=== PATIENT | female | born 1995 | race Asian ===

== ENCOUNTER 2021-01-29 00:27 | Emergency (ER) | payer BC ==
[2021-01-29 01:07] VITALS: TEMP 98.2
[2021-01-29 01:12] VITALS: BMI 19.7
[2021-01-29] MEDS ORDERED: DEXAMETHASONE SOD PHOSPHATE 10 MG/1 ML VIAL IVPUSH ONE (01:34)
[2021-01-29] MEDS ORDERED: diphenhydrAMINE HCL 25 MG CAPSULE (FP) PO ONE ×2 (03:07→03:24)
[2021-01-29] MEDS ORDERED: TRIAMCINOLONE ACET 0.1% 60 ML LOTION TP ONE (03:07)
[2021-01-29] MEDS ORDERED: SODIUM CHLORIDE 0.9% 500 ML INFUS.BAG IV ONE (03:22)
[2021-01-29] MEDS ORDERED: ALBUTEROL SO4 2.5/IPRATROPIUM 0.5 INH SOL 3 ML VIAL.NEB. NEB ONE (04:09)
[2021-01-29 04:34] VITALS: BP 105/54; PULSE 97
== END 2021-01-29 04:03 | disposition home or self-care (01) ==
LOC: JER 00:27
PROC: 3E0F7GC Introduction of Other Therapeutic Substance into Respiratory Tract, Via Natural or Artificial Opening (ICD-10-PCS; principal; 2021-01-29)
PROC: 3E033GC Introduction of Other Therapeutic Substance into Peripheral Vein, Percutaneous Approach (ICD-10-PCS; 2021-01-29)
PROC: 3E033GC Introduction of Other Therapeutic Substance into Peripheral Vein, Percutaneous Approach (ICD-10-PCS; 2021-01-29)
DX: L50.0 Allergic urticaria (principal); T78.40XA Allergy, unspecified, initial encounter
CPT/HCPCS: 99284-25; J1100